=== PATIENT | male | born 1975 | race Caucasian/White ===

== ENCOUNTER 2020-09-17 15:46 | Emergency (ER) | payer OTHER ==
[~2020-09-17] VITALS: Ht 182 cm; Wt 122.0 kg
[2020-09-17] MEDS ORDERED: TETANUS,DIPTH,PERTUSS P/F (BOOSTRIX) 0.5 ML VIAL IM ONE (16:00)
--- NOTE | 2020-09-17 16:17 | ED Upper Extremity ---
General Chief Complaint: Laceration Stated Complaint: LEFT HAND INJURY, BLEEDING Nursing Triage Note: AMBULATED TO ROOM 06. STATES HE PUT A CHIZZLE THRU HIS LEFT HAND CAUSING A LACERATION. Nursing Sepsis Screen: No Definite Risk Source: patient Exam Limitations: no limitations History of Present Illness Date Seen by Provider: Sep 17, 2020 Time Seen by Provider: 16:00 Initial Comments Patient is a 45-year-old male who presents to the emergency department today with a chief complaint of left hand laceration. Patient states that he was working with a wood chisel and stabbed with a wood chisel into the palm of his left hand. Patient states he had immediate pain and bleeding. Patient states that he is right-hand dominant. Patient wrapped his hands and cloth and presented to the emergency room for further evaluation and management. Patient cannot recall his last tetanus shot. All other review of systems reviewed and negative except as stated. Onset: just prior to arrival Severity: moderate Pain/Injury Location: left hand Method of Injury: incised Modifying Factors: Worse With Movement Allergies and Home Medications Allergies Coded Allergies: No Known Drug Allergies (Unverified , 09/17/20) Home Medications No Active Prescriptions or Reported Meds Patient Home Medication List Home Medication List Reviewed: Yes Review of Systems Constitutional: see HPI EENTM: no symptoms reported Respiratory: no symptoms reported Cardiovascular: no symptoms reported Gastrointestinal: no symptoms reported Genitourinary: no symptoms reported Musculoskeletal: no symptoms reported Skin: other (Laceration to the thenar eminence of the left hand) All Other Systems Reviewed Negative Unless Noted: Yes Past Ksviaio-Mqbzvn-Eldyfe Hx Patient Social History Alcohol Use: Occasionally Uses Smoking Status: Never a Smoker Recent Infectious Disease Expo: No Recent Hopitalizations: No Seasonal Allergies Seasonal Allergies: No Past Medical History Surgeries: Yes Orthopedic Respiratory: No Cardiac: No Neurological: No Genitourinary: No Gastrointestinal: No Musculoskeletal: No Endocrine: No HEENT: No Cancer: No Psychosocial: No Integumentary: No Physical Exam Vital Signs Vital Signs - First Documented 09/17/20 15:46 Temp 36.2 Pulse 83 Resp 16 B/P (MAP) 148/89 (108) Pulse Ox 98 O2 Delivery Room Air Capillary Refill : Less Than 3 Seconds Height, Weight, BMI Height: '" Weight: lbs. oz. kg; 36.00 BMI Method: General Appearance: WD/WN, no apparent distress HEENT: PERRL/EOMI Neck: full range of motion Cardiovascular: regular rate, rhythm Respiratory: no respiratory distress, no accessory muscle use Shoulder: normal inspection, non-tender, no evidence of injury Elbow/Forearm: normal inspection, no evidence of injury, normal ROM Wrist: Yes normal inspection, Yes non-tender, Yes no evidence of injury, Yes normal ROM Hand: Left (Patient has a 3 cm laceration to the thenar eminence of the left hand. Most medial portion of the laceration appears to be the deepest with subcutaneous fat extruding through the wound. Lateral aspect has some bleeding noted after removal of his homemade dressing. Wound is tender to palpation. Distal neurovascularly intact) Neurologic/Psychiatric: alert, normal mood/affect, oriented x 3 Skin: normal color, warm/dry Procedures/Interventions Wound Location: Upper Extremities Wound Length (cm): 3 Wound's Depth, Shape: superficial, linear Wound Explored: no foreign body removed Irrigated w/ Saline (ccs): 200 Betadine Prep?: Yes (Betasept soap used) Anesthesia: 1% Lidocaine Volume Anesthetic (ccs): 2 Suture: Ethlion Suture Size: 4-0 Number of Sutures: 5 Layer Closure?: 1 Sterile Dressing Applied?: Yes Progress/Results/Core Measures Results/Orders My Orders Orders - ROSE PUGH MD Dipht,Pertuss(Acell),Tet Adult (Boostrix (09/17/20 16:00) Hand, Left, 3 Views (09/17/20 15:55) Medications Given in ED Current Medications Medications Dose Ordered Sig/Neftaly Route Start Time Stop Time Status Last Admin Dose Admin Diphtheria/ Tetanus/Acell Pertussis 0.5 ml ONCE ONCE IM 09/17/20 16:00 09/17/20 16:01 DC 09/17/20 16:02 0.5 ML Vital Signs/I&O 09/17/20 15:46 Temp 36.2 Pulse 83 Resp 16 B/P (MAP) 148/89 (108) Pulse Ox 98 O2 Delivery Room Air Blood Pressure Mean: 108 Diagnostic Imaging Diagonstic Imaging: Xray Plain Films/CT/US/NM/MRI: hand Comments [facility], [place] NAME: DOLORES HOOKS [facility] REC#: [id number] PT STATUS: REG ER : 1975 PHYSICIAN: ROSE PUGH MD ADMIT DATE: 09/17/20/ER Draft Date of Exam:09/17/20 HAND, LEFT, 3 VIEWS CLINICAL INDICATION: Patient put a chisel through this left hand causing laceration. EXAM: X-ray of the left hand, three views. COMPARISON: None. FINDINGS: There is no acute fracture or dislocation. There is no significant bone or joint abnormality. There is no soft tissue abnormality seen. IMPRESSION: There is no acute fracture or dislocation. There is no radiodense foreign object seen. Dictated on workstation # [id number] Dict: 09/17/20 1621 Trans: 09/17/20 1623 [facility] [id number] Interpreted by: JULIA RODRÍGUEZ MD Electronically signed by: Departure Impression Primary Impression: Laceration of left hand Disposition: HOME, SELF-CARE Condition: Stable Departure-Patient Inst. Decision time for Depature: 16:38 Referrals: [facility] [place] Patient Instructions: Laceration Repair With Stitches (DC) Add. Discharge Instructions: Please return to the emergency room in 12 to 14 days to have your sutures removed. Please take the antibiotic as prescribed for the next 7 days. You can take [id number] Tylenol and/or ibuprofen as needed for pain. Keep the wound clean dry and covered. Do not submerge her left hand underwater for the next 24 to 48 hours. You can shower. Return to the emergency room sooner for any redness, drainage, red streaking up your hand or fever or any other emergent concerning symptoms. Scripts Cephalexin (Keflex) 500 Mg Capsule 500 MG PO TID for 7 Days, #21 CAP Prov: ROSE PUGH MD 09/17/20 ROSE PUGH MD Sep 17, 2020 16:17
--- NOTE | 2020-09-17 16:24 | Diagnostic Imaging Report ---
CLINICAL INDICATION: Patient put a chisel through this left hand causing laceration. EXAM: X-ray of the left hand, three views. COMPARISON: None. FINDINGS: There is no acute fracture or dislocation. There is no significant bone or joint abnormality. There is no soft tissue abnormality seen. IMPRESSION: There is no acute fracture or dislocation. There is no radiodense foreign object seen. Dictated by: Dictated on workstation # [id number]
[2020-09-17] MEDS ORDERED: CEPH-507 PO (16:39)
[2020-09-17 16:44] VITALS: BP 148/89
== END 2020-09-17 16:44 | disposition home or self-care (01) ==
LOC: EDUNIT# 15:46 → ER 15:47
DX: S61.412A Laceration without foreign body of left hand, initial encounter (principal); Z23 Encounter for immunization; X99.1XXA Assault by knife, initial encounter
CPT/HCPCS: 12042; 73130; 90715